=== PATIENT | male | born 1995 | race Caucasian/White ===

== ENCOUNTER 2020-09-08 13:30 | Emergency (ER) | payer OTHER ==
[2020-09-08] MEDS ORDERED: Mag-Al Plus 1200 MG/1200 MG/120 MG/30 ML UDCUP ONE (13:57)
[2020-09-08] MEDS ORDERED: Lidocaine Viscous Sol 2% 15 ml UD Cup ONE (13:57)
== END 2020-09-08 14:55 | disposition home or self-care (01) ==
LOC: NAV ERS 13:30
DX: K29.00 Acute gastritis without bleeding (principal)
CPT/HCPCS: 99283